=== PATIENT | male | born 1945 | race Caucasian/White ===

== ENCOUNTER → 2023-09-04 08:12 | Outpatient (REF) | payer MEDICARE, OTHER, SELFPAY | LOC: RAD 08:12 | PROVIDERS: ATTENDING PHYSICIAN Physician Assistant Medical; FAMILY PHYSICIAN Family Medicine | DX: Z96.652 Presence of left artificial knee joint (principal) | CPT/HCPCS: 78315; A9503 ==

== ENCOUNTER → 2023-09-16 11:12 | Outpatient (REF) | payer MEDICARE, OTHER, SELFPAY ==
[2023-09-16 12:01] LABS: % Basophils 1.1 % (0-2); % Lymphocytes 14.4 % (20.5-51.1); % Neutrophils 68.5 % (42.2-75.2); Absolute Basophils 0.1 10^3/uL (0-0.2); Absolute Eosinophils 0.2 10^3/uL (0-0.7); Absolute Immature Granulocytes 0.1 10^3/uL (0-0.05); Absolute Lymphocytes 1.2 10^3/uL (1.2-3.4); Absolute Neutrophils 5.5 10^3/uL (1.4-6.5); Hematocrit 49.5 % (39.0-52.0); Hemoglobin 16.7 g/dL (13.0-18.0); Mean Corp Hgb Conc. 33.7 g/dL (33.0-37.0); Mean Corpuscular Hgb 33.2 pg (27.0-31.0); Mean Corpuscular Volume 98.4 fL (80.0-94.0); Mean Platelet Volume 9.3 fL (7.4-10.4); Nucleated Red Blood Cells % 0 % (-); Platelet Count 168 10^3/uL (130-400); Red Blood Cell Count 5.03 10^6/uL (4.70-6.10); Red Cell Dist. Width 13.5 % (11.5-14.5)
[2023-09-16 12:42] LABS: Blood Urea Nitrogen 19 mg/dl (9-20); Calcium 8.7 mg/dl (8.4-10.2); Carbon Dioxide 26 mmol/L (22-30); Chloride 110 mmol/L (98-107); Glucose 97 mg/dl (70-99); Potassium 4.4 mmol/L (3.5-5.1); Sodium 140 mmol/L (135-145); eGFR > 60.00
== END ==
LOC: REG 11:12
PROVIDERS: ATTENDING PHYSICIAN Specialist; FAMILY PHYSICIAN Family Medicine
DX: Z01.818 Encounter for other preprocedural examination (principal)
CPT/HCPCS: 36415; 80048; 85025

== ENCOUNTER 2023-11-11 06:26 | Inpatient (IN) | payer MEDICARE, OTHER, SELFPAY ==
--- NOTE | 2023-10-08 09:45 | CM ---
Patient is scheduled for an elective L THR on 11/11/23. Spoke with patient prior to surgery via telephone. Patient had a R THR at in 2013. Reintroduced role of Orthopedic Navigator. Patient reports that he lives with his in a two story home.
There are two steps to enter and a flight of steps to the second floor. There is a powder room on the entry level recruiter. He currently functions independently. He has a rolling walker, shower seat and hip kit. He has had VN services through [facility]. PCP is
Dr. Tristian Davis.
Discussed orthopedic program and post surgical plans. Reviewed anticipated length of stay and that goal is for him to return home at discharge. Also reviewed outpatient PT. Patient is in agreement with tentative plan and will go directly to
outpatient PT at [facility], [place]. He will have support from his when he goes home.
Patient will complete online education.
Plan: Orthopedic Navigator will remain available to assist with the care of patient and will reassess discharge needs after surgery.
[2023-10-22 08:17] VITALS: BMI 32.1
[2023-10-22 08:45] LABS: Hematocrit 44.1 % (39.0-52.0); Hemoglobin 15.3 g/dL (13.0-18.0); Mean Corp Hgb Conc. 34.7 g/dL (33.0-37.0); Mean Corpuscular Hgb 32.7 pg (27.0-31.0); Mean Corpuscular Volume 94.2 fL (80.0-94.0); Mean Platelet Volume 9.4 fL (7.4-10.4); Platelet Count 257 10^3/uL (130-400); Red Blood Cell Count 4.68 10^6/uL (4.70-6.10); Red Cell Dist. Width 13.5 % (11.5-14.5); White Blood Cell Count 6.6 10^3/uL (4.8-10.8)
[2023-10-22 09:09] LABS: ALT (SGPT) 38 U/L (0-50); AST (SGOT) 39 U/L (17-59); Albumin 3.6 g/dl (3.5-5.0); Alkaline Phosphatase 67 U/L (38-126); Blood Urea Nitrogen 14 mg/dl (9-20); Calcium 9.1 mg/dl (8.4-10.2); Carbon Dioxide 29 mmol/L (22-30); Chloride 105 mmol/L (98-107); Estimated Creatinine Clearance 65 ml/min; Glucose 102 mg/dl (70-99); Potassium 3.7 mmol/L (3.5-5.1); Sodium 141 mmol/L (135-145); Total Bilirubin 1.2 mg/dl (0.2-1.3); Total Protein 6.5 g/dl (6.3-8.2); eGFR > 60.00
[2023-10-22 13:08] LABS: Glycohemoglobin (HgbA1c) 5.7 % (4.0-5.6)
[2023-10-22 16:14] VITALS: BMI 32.1
[2023-11-11] VITALS (14 sets, daily range): BP systolic 102–160; BP diastolic 64–99; PULSE 64–67; O2SAT 95–98
[2023-11-11] MEDS: CELEBREX 200 MG PO (08:45)
[2023-11-11] MEDS: TYLENOL 650 MG PO ×3 (08:46→20:00)
[2023-11-11] MEDS: NORMOSOL-R 1000 IV ×2 (08:51→13:22)
[2023-11-11] MEDS: ROXICODONE 5 MG PO ×2 (13:25→15:53)
[2023-11-11] MEDS: ASPIRIN 325 MG PO (17:05)
[2023-11-11] MEDS: TOPROL XL 25 MG PO (19:59)
[2023-11-11] MEDS: ANCEF 5 IV (19:59)
[2023-11-11] MEDS: COLACE 100 MG PO (19:59)
[2023-11-11] MEDS: NEURONTIN 300 MG PO (20:00)
[2023-11-11] MEDS: TORADOL 15 MG IV (20:00)
[2023-11-11] MEDS: SENOKOT 17.1999999999999993 MG PO (20:00)
[2023-11-11] MEDS: DECADRON 4 MG PO (20:01)
[2023-11-11] MEDS: BACTROBAN 2% OINTMENT 1 APPLIC NASAL (22:23)
[2023-11-11] MEDS: DILAUDID 0.5 MG IV (22:24)
[2023-11-11] MEDS: LIPITOR 10 MG PO (22:24)
[2023-11-11] MEDS: PROTONIX 40 MG PO (22:24)
[2023-11-11] MEDS: ROXICODONE 10 MG PO (23:59)
[2023-11-12] MEDS: TYLENOL PO (00:39)
[2023-11-12 03:50] VITALS: BP 109/64
[2023-11-12] MEDS: TYLENOL 650 MG PO ×2 (04:14→08:36)
[2023-11-12] MEDS: ANCEF 5 IV (04:14)
[2023-11-12 07:00] VITALS: BP 108/72
[2023-11-12] MEDS: TOPROL XL PO (08:33)
[2023-11-12] MEDS: TORADOL 15 MG IV (08:35)
[2023-11-12] MEDS: COLACE 100 MG PO (08:35)
[2023-11-12] MEDS: DECADRON 4 MG PO (08:35)
[2023-11-12] MEDS: NEURONTIN 300 MG PO (08:36)
[2023-11-12] MEDS: CELEBREX 200 MG PO (08:36)
[2023-11-12] MEDS: SENOKOT 17.1999999999999993 MG PO (08:36)
[2023-11-12] MEDS: ASPIRIN 325 MG PO (08:36)
[2023-11-12] MEDS: BACTROBAN 2% OINTMENT 1 APPLIC NASAL (08:36)
--- NOTE | 2023-11-12 08:36 | CM ---
Addendum entered by Estefany Meza 11/12/23 11:37:
Patient worked with PT and OT. His was not present for therapy as patient told her not to come. He states that she is getting him a raised toilet seat and grabber and he has no concerns about going home.
Original Note:
Reviewed chart and held rounds with PT, OT and nursing. Patient admitted as planned for elective L THR. Met with patient at bedside. Confirmed information previously obtained for assessment. Also discussed discharge plans. The plan is for patient to
return home at discharge. He will have support from his when he goes home. Patient will go directly to outpatient PT and will go to [facility]. He has an appointment scheduled for Saturday, 11/12. Reviewed need to schedule appointment with RAMAN "Madelyn"at Dr. Araujo office in two weeks for removal of gary.
Patient has a rolling walker, cane and grabber. Discussed need for raised toilet seat and other hip kit items. Patient doesn't feel he will need these. Reviewed hip precautions and patient states that he will get a raised toilet seat (discussed
options for obtaining this; OT to address further). Patient also said he needs a new grabber; reviewed options for obtaining.
He will use [facility] pharmacy for discharge prescriptions.
Patient's will be present for therapy today.
--- NOTE | 2023-11-12 09:05 | W.PN.ORTHO ---
Today's Communication / Plan
-
d/c
Assessment
.
Distal Motor Intact: Yes
Dressing:
Clean, dry and intact.
Plan
.
Surgery / Date: Winnie SOTO 11/11/23 Dr. Araujo 11/11/23
DVT Prophylaxis: Aspirin
Activity:
Out of bed.
PT/OT
Discharge Plan: Home w/ Outpatient PT
Subjective
.
.:
Patient resting comfortably.
Vital Signs and Labs
.
Vital Signs and Labs:
Lab Results
10/22/23 07:26
10/22/23 07:26
Temp Pulse Resp BP Pulse Ox
97.9 F 66 18 108/72 96
11/12/23 07:00 11/12/23 07:00 11/12/23 07:00 11/12/23 08:33 11/12/23 03:50
Non-invasive Hgb result: 12.1
Physical Exam
-
HEENT: No pallor, cyanosis, or jaundice. Throat clear.
NECK: Supple. No JVD.
RESPIRATORY: Lungs clear to auscultation.
CVS: S1, S2 normal. RRR.� No murmur, rub or gallop.
ABDOMEN: Soft, non-tender. No distension. BS+/normal.
EXTREMITIES: strength equal, no calf pain with palpation
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
--- NOTE | 2023-11-12 09:08 | W.DS.TRANS ---
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
-
Discharge Instructions:
Sleep Apnea Risk Intermediate
Discharge Diagnosis/Procedures L CHARLES Araujo 11/11/23
Diet As tolerated
Activity With Walker
Driving Restrictions No driving
Bathing Restrictions OK to Shower
Other Services PT
Instructions:
Stand-Alone Forms: Total Hip/Knee Replacement D/C
Changes to Home Medications: Yes
Discharge Medications:
DC Medications w/original date entered in [email or web address]
simvastatin 20 mg tablet 20 mg PO HS High Cholesterol 07/14/09
metoprolol succinate 50 mg tablet,extended release 24 hr 25 mg PO BID Heart Disease/Condition 11/30/10
mupirocin 2 % topical ointment 1 applic topical BID infection prevention #1 tube 10/22/23
acetaminophen 325 mg capsule (Tylenol) 650 mg (2 x 325 mg) PO QID #2 caps 11/11/23
aspirin 325 mg tablet 325 mg PO DAILY blood clot prevention #1 tab 11/11/23
dexamethasone 4 mg tablet 4 mg PO BID inflammation #6 tabs 11/11/23
docusate sodium 100 mg capsule (Colace) 100 mg PO BID stool softner #1 cap 11/11/23
famotidine 20 mg tablet 20 mg PO HS GI prophylaxis #30 tabs 11/11/23
gabapentin 300 mg capsule 300 mg PO HS sleep/pain #10 caps 11/11/23
magnesium hydroxide 400 mg/5 mL oral suspension (Milk of Magnesia) 30 ml PO HS PRN Constipation #1 mL 11/11/23
meloxicam 15 mg tablet 15 mg PO DAILY anti-inflammatory #14 tabs 11/11/23
oxycodone 5 mg tablet 5 mg PO Q6H PRN 1 tab moderate pain, 2 tabs severe pain #30 tabs 11/11/23
sennosides 8.6 mg tablet (Senokot) 17.2 mg (2 x 8.6 mg) PO BID laxative #2 tabs 11/11/23
Home Medication Changes
dexamethasone 4 mg tablet 4 mg PO BID inflammation #6 tabs 11/11/23
famotidine 20 mg tablet 20 mg PO HS GI prophylaxis #30 tabs 11/11/23
gabapentin 300 mg capsule 300 mg PO HS sleep/pain #10 caps 11/11/23
meloxicam 15 mg tablet 15 mg PO DAILY anti-inflammatory #14 tabs 11/11/23
oxycodone 5 mg tablet 5 mg PO Q6H PRN 1 tab moderate pain, 2 tabs severe pain #30 tabs 11/11/23
Pending Results: No
[2023-11-12 10:28] VITALS: BP 108/61; PULSE 62; O2SAT 97
[2023-11-12 11:35] VITALS: BP 110/69; BP 111/58; PULSE 70; O2SAT 95
== END 2023-11-12 12:29 | disposition home or self-care (01) | DRG 470 ==
LOC: 2 SOUTH 06:26
PROVIDERS: ADMITTING PHYSICIAN Specialist; FAMILY PHYSICIAN Family Medicine
PROC: 0SRB04A Replacement of Left Hip Joint with Ceramic on Polyethylene Synthetic Substitute, Uncemented, Open Approach (ICD-10-PCS; 2023-11-11)
DX: M16.12 Unilateral primary osteoarthritis, left hip (principal); E66.9 Obesity, unspecified; I10 Essential (primary) hypertension; E78.5 Hyperlipidemia, unspecified; J43.9 Emphysema, unspecified; J47.9 Bronchiectasis, uncomplicated; E04.1 Nontoxic single thyroid nodule; Z96.641 Presence of right artificial hip joint; Z68.32 Body mass index [BMI] 32.0-32.9, adult; Z92.3 Personal history of irradiation; Z90.49 Acquired absence of other specified parts of digestive tract; Z88.0 Allergy status to penicillin; Z72.0 Tobacco use; Z85.038 Personal history of other malignant neoplasm of large intestine; Z85.46 Personal history of malignant neoplasm of prostate
CPT/HCPCS: 36415; 73502; 80053; 83036; 85027; 87070; 93005; 97110; 97116; 97162; 97166; 97530; 97535; C1713; C1776

== ENCOUNTER → 2023-12-09 14:58 | Outpatient (REF) | payer MEDICARE, OTHER, SELFPAY | LOC: RAD 14:58 | PROVIDERS: ATTENDING PHYSICIAN Physician Assistant; FAMILY PHYSICIAN Family Medicine | DX: M79.662 Pain in left lower leg (principal) | CPT/HCPCS: 93971 ==

== ENCOUNTER → 2024-01-09 15:12 | Outpatient (REF) | payer MEDICARE, OTHER, SELFPAY | LOC: RAD 15:12 | PROVIDERS: ATTENDING PHYSICIAN Nurse Practitioner Adult Health; FAMILY PHYSICIAN Family Medicine | DX: R10.32 Left lower quadrant pain (principal) | CPT/HCPCS: 76705 ==

== ENCOUNTER → 2024-03-18 14:54 | Outpatient (REF) | payer MEDICARE, OTHER, SELFPAY | LOC: HWRAD 14:54 | PROVIDERS: ATTENDING PHYSICIAN Registered Nurse Ambulatory Care; FAMILY PHYSICIAN Family Medicine | DX: R05.1 Acute cough (principal) | CPT/HCPCS: 71046 ==